=== PATIENT | female | born 1985 | race Caucasian/White ===

== ENCOUNTER 2017-05-01 18:43 | Emergency (ER) | payer BC ==
[~2017-05-01] VITALS: Ht 160 cm; Wt 102.7 kg
[~2017-05-01 18:43] MED LIST: ACET-1311 PO; AMOX875T PO; BIOTCAP2 PO; CYAN100020 PO; IBUP-1050 PO; LORA-741 PO; SERT50TA PO
[2017-05-01 18:59] VITALS: TEMP 36.7; Ht 160 cm; Wt 102.7 kg
[2017-05-01] MEDS ORDERED: KETOROLAC TROMETHAMINE 30 MG/ML VIAL IV STA (19:23)
[2017-05-01] MEDS ORDERED: SODIUM CHLORIDE 0.9% 1000ML 1,000 ML IV STA ×2 (19:23)
[2017-05-01] MEDS ORDERED: ONDANSETRON INJ 2 MG/ML 2 ML VIAL IV STA (19:23)
[2017-05-01 19:53] LABS: BASO % 0.4 %; BASO ABS # 0.05 K/uL (0-0.2); COMPLETE YES; HEMATOCRIT 38.6 % (37-47); IG% 0.4 %; LYMPH % 25.7 %; LYMPH ABS # 2.93 K/uL (1.2-3.4); MEAN CELL VOLUME 84.8 fL (80-100); MEAN CORPUSCULAR HEMOGLOBIN 27.3 pg (25-34); MEAN CORPUSCULAR HGB CONC 32.1 g/dl (32-36); MEAN PLATELET VOLUME 9.4 fL (7.4-10.4); NEUT % 68.5 %; PLATELET COUNT 270 K/uL (130-400); RED BLOOD COUNT 4.55 M/uL (4.2-5.4); WHITE BLOOD COUNT 11.38 K/uL (4.8-10.8)
[2017-05-01] MEDS ORDERED: OMEP20CA9 PO (20:00)
[2017-05-01] MEDS ORDERED: TPM25 PO (20:00)
[2017-05-01 20:07] LABS: URINE APPEARANCE CLOUDY (CLEAR); URINE BILIRUBIN NEG (NEG); URINE COLOR YELLOW; URINE EPITHELIAL CELL AUTO >30 /lpf (0-5); URINE NITRITE NEG (NEG); URINE PH 6.5 (4.5-7.5); URINE SPECIFIC GRAVITY 1.028 (1.000-1.030); UROBILINOGEN NEG (NEG)
[2017-05-01 20:08] LABS: MANUAL MICROSCOPIC REQUIRED? NO; REVIEW REQ? YES
[2017-05-01 20:23] LABS: ALB/GLOB RATIO 1.1 (0.9-2); BUN/CREATININE RATIO 9.2 (10-20); CALCIUM 8.7 mg/dl (8.5-10.1); CREATININE 0.8 mg/dl (0.60-1.20); POTASSIUM 3.7 mmol/L (3.5-5.1)
--- NOTE | 2017-05-01 20:51 | DIAGNOSTIC IMAGING REPORT ---
ABDOMINAL ULTRASOUND COMPLETE HISTORY: Left flank pain LUQ /EPIGASTRIC PAIN. COMPARISON: None. FINDINGS: Pancreas: The pancreas demonstrates a normal echotexture. Liver: Mild fatty infiltration Gallbladder: No gallbladder wall thickening. No gallstones. CBD: 3 mm Kidneys: No hydronephrosis. Spleen: Slightly prominent at 13 cm Aorta: Normal in caliber. IVC: Patent. IMPRESSION: 1. Mild fatty infiltration of liver. 2. Slight fullness of the spleen at 13 cm. Electronically signed by: Chris Davidson M.D. 05/01/2017 8:50 PM Dictated Date/Time: 05/01/2017 8:49 PM
--- NOTE | 2017-05-01 21:49 | DIAGNOSTIC IMAGING REPORT ---
ABDOMEN AND PELVIS CT WITHOUT CONTRAST CT DOSE: 1716.19 mGy.cm HISTORY: Pain LEFT FLANK PAIN TECHNIQUE: Multiaxial CT images of the abdomen and pelvis were performed without the use of intravenous and oral contrast according to the standard department stone protocol. COMPARISON STUDY: 03/30/2016 FINDINGS: Lung bases are clear. Liver spleen and pancreas are unremarkable. Gallbladder is negative for distention. Kidneys negative for hydronephrosis. There is no evidence for an obstructing urinary tract calculus. Bowel pattern within the abdomen and pelvis is nonobstructive. The appendix is normal. There is a 2 cm left ovarian cyst. Uterus is anteflexed. There is no significant free fluid within the pelvic cul-de-sac. Inguinal regions are unremarkable. IMPRESSION: 1. 2 cm left ovarian cyst. 2. Otherwise negative abdomen and pelvis Electronically signed by: Chris Davidson M.D. 05/01/2017 9:48 PM Dictated Date/Time: 05/01/2017 9:42 PM
[2017-05-01] MEDS ORDERED: ONDA4TAB10 SL (21:54)
--- NOTE | 2017-05-01 21:55 | EMERGENCY ROOM VISIT NOTE ---
History First contact with patient: 19:03 Chief Complaint: ABDOMINAL PAIN Stated Complaint: UPPER LF QUADRANT PAIN Nursing Triage Summary: Pt reports LUQ around to back that is intermittent, began last night. Nausea. Loose stool. History of Present Illness Patient is a 31-year-old white female who presents to emergency department for evaluation of left upper quadrant/epigastric pain last evening. She has a history of nonspecific abdominal pain and stomach problems. She follows with Dr. Harman with [facility]. She states that she has had problems on and off over the last 6 months. She had an EGD last fall which showed a small stomach ulcer. Patient is on Prilosec 20 mg daily. She had a colonoscopy in November of this year which was unremarkable. Patient states that she has intermittent left upper quadrant pain fairly frequently. She reports episodes of pain that can last for a few hours and sometimes once or twice a month. She notes pain in the left upper quadrant that radiates toward the epigastric region that is associated with nausea. Last evening, the pain woke her from sleep around midnight, which was unusual for her. She also reported feeling the pain radiates through to her mid back, which she is never experienced previously. She reports associated nausea and anorexia without vomiting. She did not take any additional medications for her symptoms last evening, but has used Zantac in the past. She refrains from using NSAIDs due to her ulcer history, and has cut out all caffeine and carbonated beverages. She reports drinking less than one beer in the 2-3 days prior. She denies any diarrhea edges reports that her stools have been loose. She denies melena or hematochezia. She would've rated her pain an 8/10 at its worse last evening and presently rates it a 5/10. She states the pain is up under her ribs on the left-hand side. She does note increased pain when she lays flat. She denies any chest pain or shortness of breath. No palpitations. No urinary symptoms. Last menstrual period was 2 weeks ago. Review of Systems Review of systems as per HPI. All other systems reviewed were negative. 10 systems reviewed. Past Medical/Surgical History Medical Problems: (1) Alcohol intoxication (2) Anxiety and depression (3) Chest pain (4) Migraines (5) Obesity (6) Pneumonia (7) Stomach problems (8) Stomach ulcer (9) Vaginal delivery (10) Viral gastroenteritis Surgical Problems: (1) History of colonoscopy (2) History of esophagogastroduodenoscopy (EGD) Electronic medical records are reviewed and summarized as above/below. See Problem List. Family History Diabetes mellitus FH: neurologic disorder Heart disease Social History Smoking Status: Never Smoker Alcohol Use: occasionally Marital Status: Housing Status: lives with family Occupation Status: employed Current/Historical Medications Scheduled Cyanocobalamin (Vitamin B12), 1,000 MCG PO DAILY Omeprazole (Prilosec), 20 MG PO QAM Topiramate (Topiramate), 25 MG PO HS Scheduled PRN Ondasetron Odt (Zofran Odt), 4 MG SL Q6H PRN for Nausea or Vomiting Allergies Coded Allergies: Sulfa Drugs (Verified Allergy, Mild, 12/30/10) Physical Exam Vital Signs Date Time Temp Pulse Resp B/P (MAP) Pulse Ox O2 Delivery O2 Flow Rate FiO2 05/01/17 21:29 76 18 118/72 100 Room Air 05/01/17 18:59 36.7 86 20 144/89 98 Room Air Physical Exam CONSTITUTIONAL: Patient is an overweight 31-year-old white female who is awake and alert and in no acute distress. EYES: Pupils equal, round, reactive to light and accommodation. EOMs intact without nystagmus. Sclera are anicteric. ENT: Tympanic membranes intact, with normal landmarks. External canals are clear. Oral and nasopharynx are clear. Mucous membranes are moist, no lesions , tongue and gums appear normal. NECK: No bruits auscultated. Supple without lymphadenopathy. No thyromegaly. No meningeal signs. Full active range of motion without discomfort. CARDIOVASCULAR: Regular rate and rhythm, with normal S1 and S2, no murmur or gallop or rub is heard. No carotid bruits auscultated. No JVD. Peripheral pulses easy to palpable. RESPIRATORY: Breath sounds equal and clear to auscultation without wheezes, rales, or rhonchi heard. Full and equal chest expansion without accessory muscle use or retractions. GI: Bowel sounds are present. Abdomen is soft, nondistended, tender in the epigastric and left upper quadrants, without guarding or rebound. No organomegaly. No pulsatile masses. There is no pain in the right lower quadrant over McBurney's point. There is no pain in the right upper quadrant and negative Lee sign. MUSCULOSKELETAL: Full range of motion of extremities x 4 with good strength. No cyanosis, edema, joint tenderness or swelling. No deformity. INTEGUMENTARY: No lesions or rash, normal skin turgor. NEUROLOGICAL: Alert, oriented, and cooperative. Cranial nerves, sensation and strength grossly intact. Pupils round, equal, and react to light, EOMs are full. LYMPH: No lymphadenopathy. Medical Decision & Procedures ER Provider Diagnostic Interpretation: ABDOMEN AND PELVIS CT WITHOUT CONTRAST CT DOSE: 1716.19 mGy.cm HISTORY: Pain LEFT FLANK PAIN TECHNIQUE: Multiaxial CT images of the abdomen and pelvis were performed without the use of intravenous and oral contrast according to the standard department stone protocol. COMPARISON STUDY: 03/30/2016 FINDINGS: Lung bases are clear. Liver spleen and pancreas are unremarkable. Gallbladder is negative for distention. Kidneys negative for hydronephrosis. There is no evidence for an obstructing urinary tract calculus. Bowel pattern within the abdomen and pelvis is nonobstructive. The appendix is normal. There is a 2 cm left ovarian cyst. Uterus is anteflexed. There is no significant free fluid within the pelvic cul-de-sac. Inguinal regions are unremarkable. IMPRESSION: 1. 2 cm left ovarian cyst. 2. Otherwise negative abdomen and pelvis ABDOMINAL ULTRASOUND COMPLETE HISTORY: Left flank pain LUQ /EPIGASTRIC PAIN. COMPARISON: None. FINDINGS: Pancreas: The pancreas demonstrates a normal echotexture. Liver: Mild fatty infiltration Gallbladder: No gallbladder wall thickening. No gallstones. CBD: 3 mm Kidneys: No hydronephrosis. Spleen: Slightly prominent at 13 cm Aorta: Normal in caliber. IVC: Patent. IMPRESSION: 1. Mild fatty infiltration of liver. 2. Slight fullness of the spleen at 13 cm. Laboratory Results 05/01/17 19:40 Red Blood Count 4.55, Mean Corpuscular Volume 84.8, Mean Corpuscular Hemoglobin 27.3, Mean Corpuscular Hemoglobin Concent 32.1, Mean Platelet Volume 9.4, Neutrophils (%) (Auto) 68.5, Lymphocytes (%) (Auto) 25.7, Monocytes (%) (Auto) 4.0, Eosinophils (%) (Auto) 1.0, Basophils (%) (Auto) 0.4, Neutrophils # (Auto) 7.79, Lymphocytes # (Auto) 2.93, Monocytes # (Auto) 0.46, Eosinophils # (Auto) 0.11, Basophils # (Auto) 0.05 05/01/17 19:40 Test 05/01/17 19:30 05/01/17 19:40 Urine Color YELLOW Urine Appearance CLOUDY (CLEAR) Urine pH 6.5 (4.5-7.5) Urine Specific [place] 1.028 (1.000-1.030) Urine Protein NEG (NEG) Urine Glucose (UA) NEG (NEG) Urine Ketones 1+ (NEG) Urine Occult Blood 2+ (NEG) Urine Nitrite NEG (NEG) Urine Bilirubin NEG (NEG) Urine Urobilinogen NEG (NEG) Urine Leukocyte Esterase SMALL (NEG) Urine WBC (Auto) >30 /hpf (0-5) Urine RBC (Auto) 5-10 /hpf (0-4) Urine Hyaline Casts (Auto) 0 /lpf (0-5) Urine Epithelial Cells (Auto) >30 /lpf (0-5) Urine Bacteria (Auto) 2+ (NEG) Urine Pathogenic Casts /lpf (0) Urine Test NEG (NEG) White Blood Count 11.38 K/uL (4.8-10.8) Red Blood Count 4.55 M/uL (4.2-5.4) Hemoglobin 12.4 g/dL (12.0-16.0) Hematocrit 38.6 % (37-47) Mean Corpuscular Volume 84.8 fL (80-100) Mean Corpuscular Hemoglobin 27.3 pg (25-34) Mean Corpuscular Hemoglobin Concent 32.1 g/dl (32-36) Platelet Count 270 K/uL (130-400) Mean Platelet Volume 9.4 fL (7.4-10.4) Neutrophils (%) (Auto) 68.5 % Lymphocytes (%) (Auto) 25.7 % Monocytes (%) (Auto) 4.0 % Eosinophils (%) (Auto) 1.0 % Basophils (%) (Auto) 0.4 % Neutrophils # (Auto) 7.79 K/uL (1.4-6.5) Lymphocytes # (Auto) 2.93 K/uL (1.2-3.4) Monocytes # (Auto) 0.46 K/uL (0.11-0.59) Eosinophils # (Auto) 0.11 K/uL (0-0.5) Basophils # (Auto) 0.05 K/uL (0-0.2) RDW Standard Deviation 44.1 fL (36.4-46.3) RDW Coefficient of Variation 14.4 % (11.5-14.5) Immature Granulocyte % (Auto) 0.4 % Immature Granulocyte # (Auto) 0.04 K/uL (0.00-0.02) Anion Gap 8.0 mmol/L (3-11) Est Creatinine Clear Calc Drug Dose 115.6 ml/min Estimated GFR () 113.1 Estimated GFR (Non- 97.6 BUN/Creatinine Ratio 9.2 (10-20) Calcium Level 8.7 mg/dl (8.5-10.1) Total Bilirubin 0.6 mg/dl (0.2-1) Aspartate Amino Transf (AST/SGOT) 11 U/L (15-37) Alanine Aminotransferase (ALT/SGPT) 17 U/L (12-78) Alkaline Phosphatase 86 U/L (45-117) Total Protein 7.2 gm/dl (6.4-8.2) Albumin 3.8 gm/dl (3.4-5.0) Globulin 3.4 gm/dl (2.5-4.0) Albumin/Globulin Ratio 1.1 (0.9-2) Lipase 133 U/L (73-393) Chemistry Specimen Hemolysis Medications Administered Medications (Trade) Dose Ordered Sig/Mark Route Start Time Stop Time Status Last Admin Dose Admin Sodium Chloride 1,000 ml @ 999 mls/hr Q1H1M STAT IV 05/01/17 19:23 05/01/17 20:23 DC 05/01/17 19:50 999 MLS/HR Ketorolac Tromethamine (Toradol Inj) 30 mg NOW STAT IV 05/01/17 19:23 05/01/17 19:27 DC 05/01/17 19:50 30 MG Ondansetron HCl (Zofran Inj) 4 mg NOW STAT IV 05/01/17 19:23 05/01/17 19:27 DC 05/01/17 19:50 4 MG ED Course The patient was seen and assessed as above. Her old records were reviewed. IV lock was initiated and she was hydrated with normal saline solution. She was medicated with nonnarcotic medications that she had driven. She was given Zofran 4 mg and Toradol 30 mg IV. CBC with differential, CMP, lipase, urinalysis and urine test were performed. Abdominal ultrasound was obtained. Laboratory studies noted a slight leukocytosis of 11,300, patient has a history of chronic leukocytosis which has previously been evaluated and this appears stable for her. H&H is normal. Electrolytes, renal functions and liver functions, liver functions and pancreatic enzymes are normal. Urinalysis notes 2+ blood, small amount of leuk esterase, greater than 30 WBCs and 5-10 RBCs per high-power field with 2+ bacteria, sample appears contaminated. Urine culture is ordered and is pending however. Urine test was negative. Total ultrasound noted slightly enlarged spleen, otherwise was unremarkable. There was no hydronephrosis or gallbladder pathology. Given the findings on urinalysis and the location of the patient's discomfort, CT scan of the abdomen and pelvis was obtained which did not demonstrate any renal or ureteral calculi , no hydronephrosis. There was a 2 cm left ovarian cyst noted. Remainder the CAT scan was unremarkable. All laboratory and diagnostic imaging studies were reviewed with the patient at length. She has had intermittent episodes of upper abdominal discomfort with undiagnosed GI issues for some time. She has had more constant pain over the last 24 hours. She has a benign abdominal exam and her ED workup is unrevealing at this time. Differential diagnoses entertained included esophagitis, gastritis, peptic ulcer disease, pancreatitis, cholelithiasis, biliary colic, acute cholecystitis, ascending cholangitis, UTI, pyelonephritis, renal colic, bowel section, perforation, infection, among others. Patient plans to increase her Prilosec and can use ranitidine for breakthrough symptoms. She was given a prescription for Zofran. 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 The patient was discharged home in good condition. She rated her discomfort a 0/10 at discharge. Medical Decision See ED Course. Impression Primary Impression: Left upper quadrant pain Departure Information Prescriptions Ondasetron Odt (ZOFRAN ODT) 4 Mg Tab 4 MG SL Q6H Y for Nausea or Vomiting, #20 TAB Prov: Latonya Myers PA 05/01/17 Referrals Bulmaro Cary M.D. (PCP) Patient Instructions [facility] Additional Instructions May increase Prilosec to 40mg daily. May use Zantac 150 mg twice daily. Acetaminophen(Tylenol) may be used for fever or pain. Use 1000mg every eight hours as needed. Avoid using more than 3000mg in a 24 hour period. This is available over the counter. Zofran(odansetron) tablets 4mg: Take one and allow it to dissolve in your mouth every four hours as needed for nausea or vomiting. Read all the package inserts or medication information paperwork provided. If you have any questions or concerns call your primary provider, pharmacist or the ER for assistance. Rest and drink plenty of fluids as tolerated. Slow sips of water or sports drinks are recommended instead of large amounts all at once. Continue current medications. Once your stomach is settled start with a clear liquid diet (jello, soup broth, etc.) and then advance as tolerated. You should avoid full, heavy meals for about 24 hrs from the time your symptoms resolved. Return to the ER immediately for worsening or persistent abdominal pain, vomiting, fevers, chest pains, difficulty breathing, black or bloody stools, worsening of your condition, or as needed. Follow up with your primary physician this week for a recheck of your current condition, and GI as you have scheduled.
[2017-05-01] MEDS ORDERED: ONDANSETRON HOME PACK 4MG OD TAB PO ONE (22:00)
[2017-05-01 22:54] VITALS: BP 116/64; PULSE 68; O2SAT 100
== END 2017-05-01 22:56 | disposition home or self-care (01) ==
LOC: C.EDB 18:44
DX: R10.12 Left upper quadrant pain (principal); D72.829 Elevated white blood cell count, unspecified; F41.8 Other specified anxiety disorders; Z86.19 Personal history of other infectious and parasitic diseases; Z98.890 Other specified postprocedural states; Z79.899 Other long term (current) drug therapy; Z88.2 Allergy status to sulfonamides; Z83.3 Family history of diabetes mellitus; Z82.49 Family history of ischemic heart disease and other diseases of the circulatory system; Z82.0 Family history of epilepsy and other diseases of the nervous system

== ENCOUNTER → 2017-05-19 | Outpatient (CLI) | payer BC ==
[~2017-05-19] MED LIST changes: -ACET-1311 PO; -AMOX875T PO; -BIOTCAP2 PO; -IBUP-1050 PO; -LORA-741 PO; +OMEP20CA9 PO; +ONDA4TAB10 SL; -SERT50TA PO; +SINCALIDE INJ 2 MCG in SODIUM CHLORIDE 0.9% 100ML 100 ML IV SCH; +TPM25 PO
--- NOTE | 2017-05-19 09:56 | DIAGNOSTIC IMAGING REPORT ---
Nuclear medicine hepatobiliary scan with ejection fraction analysis. CLINICAL HISTORY: Abdominal pain COMPARISON STUDY: Abdominal ultrasound dated 05/01/2017 FINDINGS: The patient was injected with 5.2 mCi of technetium 99m Choletec. Sequential anterior imaging was performed. Hepatic excretion is unremarkable in appearance. The gallbladder was first visualized on the 10 minute image. At 1 hour, the patient was administered 2 mcg of sincalide utilizing a 30 minute infusion. The gallbladder ejection fraction was normal measuring 95%. There was normal passage of activity into small bowel. IMPRESSION: Normal study. No evidence of cystic duct obstruction. Normal gallbladder ejection fraction of 95%. Electronically signed by: Isaac Alexander M.D. 05/19/2017 9:55 AM Dictated Date/Time: 05/19/2017 9:53 AM
== END | disposition home or self-care (01) ==
LOC: C.NUCL 07:18
PROVIDERS: ATTEND Internal Medicine
DX: R11.2 Nausea with vomiting, unspecified (principal); R68.81 Early satiety; R10.84 Generalized abdominal pain; K80.50 Calculus of bile duct without cholangitis or cholecystitis without obstruction

== ENCOUNTER 2025-08-06 11:48 | Observation (INO) ==
--- NOTE | 2025-08-06 12:53 | Emergency Department Note ---
History of Present Illness General Chief complaint: Abdominal Pain Stated complaint: STOMACH PAIN/WORSE LOWER R SIDE Time Seen by Provider: 08/06/25 12:51 History of Present Illness Maximum Pain Intensity: 5 This is a 40-year-old female who presents to the emergency department via private vehicle with complaints of "right lower quadrant abdominal pain". The patient notes that this past Monday evening into Monday morning she began with right lower quadrant abdominal pain. The pain is worse with movements, worse when driving and striking a bump in the road, and also when sitting down on the toilet. The patient denies any vomiting, diarrhea, fevers or blood in the stool. No history of ulcerative colitis or Crohn's but does note history of IBS. She follows with [facility] and was referred in noting 4 days of right lower quadrant abdominal pain. The patient does note history of cholecystectomy in 2022. Last EGD was in June. Current pain 04/05. Home Medications Medication Instructions Recorded Confirmed Type dexlansoprazole 60 mg 60 mg PO QAM 01/18/22 07/09/25 History capsule,biphase delayed release (Dexilant) famotidine 20 mg tablet 20 mg PO BID 01/18/22 07/09/25 History ondansetron HCl 8 mg tablet 8 mg PO Q8 PRN Nausea 01/18/22 07/09/25 History dicyclomine 10 mg capsule 10 mg PO TID PRN Cramping #14 caps 01/19/22 07/09/25 Rx diphenhydramine HCl 25 mg capsule 25 mg PO HS 07/02/25 07/09/25 History (Benadryl) escitalopram oxalate 20 mg tablet 20 mg PO HS 07/02/25 07/09/25 History gabapentin 100 mg capsule 200 mg PO HS 07/02/25 07/09/25 History rimegepant 75 mg disintegrating 75 mg PO UD PRN migraines 07/02/25 07/09/25 History tablet (Nurtec ODT) Allergies Allergy/AdvReac Type Severity Reaction Status Date / Time Influenza Virus Vaccines Allergy Intermediate cellulitis Verified 07/09/25 12:49 Sulfa (Sulfonamide Allergy Intermediate hives/n/v Verified 07/09/25 12:49 Antibiotics) prucalopride [From Motegrity] AdvReac Severe severe Verified 07/09/25 12:49 headaches topiramate [From Topamax] AdvReac Intermediate NAUSEA/VOMI Verified 07/09/25 12:49 TING Past Med/Surg History Problem List (Updated 08/06/25 @ 14:57 by Oniel Srivastava PA-C) Acute appendicitis (Acute) Appendicitis Maltracking of left patella Chondromalacia patellae of left knee Hx laparoscopic cholecystectomy (07/07/22) Laparoscopic Cholecystectomy - Rodrigo Gee, Irritable bowel syndrome Gastroparesis Biliary dyskinesia History of back problems Bronchitis Arthritis Anemia GERD with esophagitis Food impaction of esophagus Esophageal foreign body (Acute) Dysphagia Odynophagia Heartburn Nausea & vomiting (Acute) Morbid obesity with BMI of 45.0-49.9, adult Epigastric abdominal pain Encounter for pre-operative examination Gastroparesis Medical History Periodic limb movement disorder "restless limb syndrome" arms and legs History of dysphagia History of pneumonia ~2017 - no hospitalization, no issues since. Gastroparesis Hx of motion sickness Hx of gastric ulcer Sleep apnea mild - uses cpap History of COVID-19 09/2022- fever, head congestion, no hospitalization Asthma does not take anything routinely- mostly cold induced Tension headache Nausea and vomiting after administration of anesthetic agent Osteoarthritis Anxiety IBS (irritable bowel syndrome) GERD (gastroesophageal reflux disease) Temporomandibular joint disorder no recent issues. locked x1 (remote history ~) no problems since. Hx of leukocytosis Tachycardia per pt borderline, states normal HR is in the 90s Depression Surgical History S/P laparoscopic cholecystectomy History of tooth extraction History of colonoscopy History of esophagogastroduodenoscopy (EGD) w/ CRAVEN clip inserted/removed History of wisdom tooth extraction Family History Father Family history of diabetes mellitus Hypertension Uncle Family hx of colon cancer Grandfather (Paternal) Colorectal cancer Brother Family history of diabetes mellitus Hypertension Other Family history non-contributory No family history of adverse response to anesthesia Social History Smoking Status: Former smoker Tobacco Type: Cigarettes Second Hand Exposure: No; Do You Dip or Chew Tobacco: No; Hx Alcohol Use: Yes Alcohol type: beer and hard liquor Alcohol Intake Frequency: 2-3 x/Week Hx Substance Use: No Preferred Language: Guamanian Communication Ability: Effective Visual Impairment: No Limitations Buffing Wheel Operator Required: No Beliefs That Will Affect Care: None marital status: Current Living Situation: Spouse and Family Current Living Situation Comment: Lives with and 2 sons current occupational status: employed 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 How many Children do You have: 2 Feels Safe at Home: Yes Diet: regular during the past year weight has: remained stable Assistive Devices: CPAP and Glasses Review of Systems A total of 10 systems reviewed and were otherwise negative Physical Exam Vital Signs Vital Signs - 24 hr 08/06/25 12:14 08/06/25 12:31 08/06/25 12:54 Temperature 36.4 C L Temperature Source Temporal Artery Scan Pulse Rate 95 H 85 83 Pulse Rate from SpO2 Sensor 84 Respiratory Rate 18 16 Blood Pressure 135/80 Blood Pressure Mean 98 Pulse Oximetry 96 99 Oxygen Delivery Method Room Air Sepsis New/Unexplained Change in Mental Status No Sepsis Action Taken by Nursing No Action Required 08/06/25 13:00 08/06/25 13:15 Temperature Temperature Source Pulse Rate 83 Pulse Rate from SpO2 Sensor 84 Respiratory Rate 19 Blood Pressure 129/95 Blood Pressure Mean 113 Pulse Oximetry 99 Oxygen Delivery Method Sepsis New/Unexplained Change in Mental Status Sepsis Action Taken by Nursing VITAL SIGNS - Vital signs and nursing notes were reviewed. Stable and afebrile. GENERAL -40-year-old female appearing her stated age who is in no acute distress. Communicates well with provider and answers questions appropriately. SKIN - Without rashes. No meningeal or petechial rash. HEAD - NC/AT. EYES - PERRL with EOMI bilaterally. Sclera anicteric. NECK - No nuchal rigidity. LUNGS - CTA CARDIAC - RRR ABDOMEN - Abdominal contour normal without pulsations or visible masses. BS normoactive all four quadrants. There is right lower quadrant abdominal tenderness to palpation. No guarding or rigidity. No palpable masses, hepatosplenomegaly, or ascites noted. EXTREMITIES - No clubbing or peripheral cyanosis. +5/5 strength noted in UE/LE bilaterally. NEUROLOGIC - Cranial nerves II through XII grossly intact. PSYCH -alert, oriented and pleasant on exam Course Administered Medications Discontinued Medications Ioversol (Optiray 320 100ml) 94 ml IV ONCE ONE Stop: 08/06/25 13:58 Last Admin: 08/06/25 13:57 Dose: 94 ml Documented By: ASHLIE Medical Decision Making Laboratory Data 08/06/25 12:27 08/06/25 12:27 Lab Results 08/06/25 Range/Units 12:27 WBC 11.87 H (4.8-10.8) K/ul RBC 3.93 L (4.20-5.40) M/uL Hgb 10.8 L (12.0-16.0) g/dl Hct 33.2 L (37.0-47.0) % MCV 84.5 (80.0-100.0) fL MCH 27.5 (25.0-34.0) pg MCHC 32.5 (32.0-36.0) g/dL RDW Std Deviation 44.3 (36.4-46.3) fL RDW Coeff of Eulalio 14.4 (11.5-14.5) % Plt Count 285 (130-400) K/uL MPV 9.7 (9.4-12.4) fL Immature Gran % (Auto) 0.7 % Neut % (Auto) 73.3 % Lymph % (Auto) 19.0 % [place] % (Auto) 4.7 % Eos % (Auto) 1.8 % Baso % (Auto) 0.5 % Neut # (Auto) 8.70 H (1.40-6.50) K/uL Lymph # (Auto) 2.26 (1.20-3.40) K/uL [place] # (Auto) 0.56 (0.11-0.59) K/uL Eos # (Auto) 0.21 (0.00-0.50) K/uL Baso # (Auto) 0.06 (0.00-0.20) K/uL Immature Gran # (Auto) 0.08 (0.01-0.20) K/uL Sodium 139 (136-145) mmol/L Potassium 3.6 (3.5-5.1) mmol/L Chloride 107 (98-107) mmol/L Carbon Dioxide 25 (21-32) mmol/L Anion Gap 7 (3-11) BUN 8 (6-23) mg/dl Creatinine 0.56 L (0.6-1.2) mg/dl Est Cr Clr Drug Dosing 169.6 ml/min eGFR 117.51 BUN/Creatinine Ratio 14.3 (10-20) Glucose 86 (70-99(Fasting)) mg/dl Calcium 8.8 (8.6-10.3) mg/dl Total Bilirubin 0.6 (0.2-1.0) mg/dl AST 18 (13-39) U/L ALT 20 (7-52) U/L Alkaline Phosphatase 82 (34-104) U/L Total Protein 7.0 (6.0-8.3) gm/dl Albumin 3.9 (3.4-5.0) gm/dl Globulin 3.1 (2.5-4.0) gm/dl Albumin/Globulin Ratio 1.3 (0.9-2) Lipase 14 (11-82) U/L HCG, Qual Negative (Negative) Imaging Data Radiologist's Impression: Abdomen/Pelvis CT 08/06/25 13:03 CT SCAN OF THE ABDOMEN AND PELVIS WITH IV CONTRAST CLINICAL HISTORY: Right lower quadrant pain. COMPARISON STUDY: KUB the 2024. CT of the abdomen and pelvis November 28, 2023. TECHNIQUE: Following the IV administration of 94 cc of Optiray 320, CT scan of the abdomen and pelvis is performed from the lung bases to the proximal femora. Images are reviewed in the axial, sagittal, and coronal planes. IV contrast was administered without complication. A dose lowering technique was utilized adhering to the principles of ALARA. CT DOSE: 1580.51 mGy.cm FINDINGS: Visualized lung bases are unremarkable. There is no pneumatosis, free air or portal venous gas. There is no biliary ductal dilatation status post cholecystectomy. There are no hepatic lesions. Adrenal glands, kidneys and pancreas are normal. There is no hydronephrosis. There is no evidence for a bowel obstruction. The appendix is mildly dilated, measuring 1 cm in caliber. Moderate periappendiceal stranding is noted. There is no free air. There is no abscess. A tampon is in place. There is no lymphadenopathy. Major vasculature is patent. Submucosal fat deposition within the colon is again noted. This is chronic. IMPRESSION: Findings consistent with acute appendicitis. No free air or abscess. ACT 112: Negative or not required by law. Electronically signed by: Jordan Cross M.D. 08/06/2025 2:14 PM MDM Narrative Patient was seen and evaluated as above in room A11b. Review was performed of nursing notes and vital signs. I did review pertinent previous visits and patient history. After obtaining a thorough history and physical examination the above work up was performed. Patient presents to us today for evaluation of right lower quadrant abdominal pain. The patient denies any trauma or injury. Pain has been present since this past Monday evening. She reached out to her GI specialist and was referred in. She notes she still has the appendix. No gallbladder. She is tender in the right lower quadrant on examination. Vital signs are stable. Options of care were discussed with the patient. IV access was established. Labs were drawn. She was offered analgesia and respectfully declined.There is leukocytosis 11.87. Anemia with hemoglobin at 10.8. There is no evidence of kidney or liver failure. hCG is negative. Lipase normal. CT scan as above showing acute appendicitis. No free air or abscess. This does clinically correlate with her presentation. IV Mefoxin ordered in addition to IV fluids and IV Zofran as the patient did vomit in the CT scanner suite. Patient notes that she had some coffee today around 8 AM, but last food intake was 5 PM yesterday. With the CT scan showing acute appendicitis, I did discuss this with general surgery. 1425: I did speak with Dr. Pineda, general surgeon. Please refer to further documentation regarding her stay. GCS: 15 In the evaluation and treatment of this patient the following differential diagnoses were entertained: Appendicitis, UTI, pyelonephritis, diverticulitis, ovarian torsion, among others. Impression & Plan Acute appendicitis Discharge Plan Visit Data Chief Complaint: Abdominal Pain Stated Complaint: STOMACH PAIN/WORSE LOWER R SIDE ED Provider: Sammy Jalloh ED Midlevel Provider: Oniel Srivastava Discharge Problem: Acute appendicitis Patient Disposition: Being Evaluated by Surgeon Condition: Good Forms Stand Alone Forms: My [facility] Prescriptions Prescriptions: No Action ondansetron HCl 8 mg tablet 8 mg PO Q8 PRN (Reason: Nausea) famotidine 20 mg tablet 20 mg PO BID dexlansoprazole [Dexilant] 60 mg capsule,biphase delayed releas 60 mg PO QAM dicyclomine 10 mg capsule 10 mg PO TID PRN (Reason: Cramping) Qty: 14 0RF gabapentin 100 mg Capsule 200 mg PO HS escitalopram oxalate 20 mg Tablet 20 mg PO HS Nurtec ODT 75 mg tablet,disintegrating 75 mg PO UD PRN (Reason: migraines) diphenhydramine HCl [Benadryl] 25 mg Capsule 25 mg PO HS Referrals Referrals: Jayla Orozco [Primary Care Provider] -
[2025-08-06 13:21] LABS: Hematocrit (blood only) 33.2 % (37.0-47.0); Hemoglobin 10.8 g/dl (12.0-16.0); Immature Granulocytes # (auto) 0.08 K/uL (0.01-0.20); Immature Granulocytes % (auto) 0.7 %; Mean Corpuscular Hemoglobin 27.5 pg (25.0-34.0); Mean Corpuscular Volume 84.5 fL (80.0-100.0); Platelet Count 285 K/uL (130-400); RDW Standard Deviation 44.3 fL (36.4-46.3); Red Blood Count 3.93 M/uL (4.20-5.40); White Blood Count 11.87 K/ul (4.8-10.8)
[2025-08-06 13:37] LABS: Pregnancy Test, Serum Negative (Negative)
[2025-08-06 13:44] LABS: Alanine Aminotransferase 20.0 U/L (7-52); Albumin Globulin Ratio 1.3 (0.9-2); Alkaline Phosphatase 82.0 U/L (34-104); Anion Gap 7.0 (3-11); Bilirubin,Total 0.6 mg/dl (0.2-1.0); Blood Urea Nitrogen 8.0 mg/dl (6-23); Calcium 8.8 mg/dl (8.6-10.3); Carbon Dioxide 25.0 mmol/L (21-32); Chloride 107.0 mmol/L (98-107); Creatinine Clr Calc Pharmacy 169.6 ml/min; Globulin 3.1 gm/dl (2.5-4.0); Glucose 86.0 mg/dl (70-99(Fasting)); Lipase 14.0 U/L (11-82); Potassium 3.6 mmol/L (3.5-5.1); Sodium 139.0 mmol/L (136-145); Total Protein 7.0 gm/dl (6.0-8.3)
[2025-08-06] MEDS: OPTIRAY 320 100ml IV ONE (13:57)
--- NOTE | 2025-08-06 14:16 | CT Scan Report ---
CT SCAN OF THE ABDOMEN AND PELVIS WITH IV CONTRAST CLINICAL HISTORY: Right lower quadrant pain. COMPARISON STUDY: KUB the 2024. CT of the abdomen and pelvis November 28, 2023. TECHNIQUE: Following the IV administration of 94 cc of Optiray 320, CT scan of the abdomen and pelvi s is performed from the lung bases to the proximal femora. Images are reviewed in the axial, sagittal , and coronal planes. IV contrast was administered without complication. A dose lowering technique wa s utilized adhering to the principles of ALARA. CT DOSE: 1580.51 mGy.cm FINDINGS: Visualized lung bases are unremarkable. There is no pneumatosis, free air or portal venous gas. There is no biliary ductal dilatation status post cholecystectomy. There are no hepatic lesions. Adrenal glands, kidneys and pancreas are normal. There is no hydronephrosis. There is no evidence fo r a bowel obstruction. The appendix is mildly dilated, measuring 1 cm in caliber. Moderate periappend iceal stranding is noted. There is no free air. There is no abscess. A tampon is in place. There is n o lymphadenopathy. Major vasculature is patent. Submucosal fat deposition within the colon is again n oted. This is chronic. IMPRESSION: Findings consistent with acute appendicitis. No free air or abscess. ACT 112: Negative or not required by law. Electronically signed by: Jordan Cross M.D. 08/06/2025 2:14 PM
--- NOTE | 2025-08-06 14:47 | History & Physical Report ---
Date of Service August 06, 2025 Assessment & Plan (1) Appendicitis: Plan: IVF IV abx to OR for lap appendectomy Present on Admission?: Yes History of Present Illness Primary Care Provider: Jayla Orozco This is a 40YO who came to ED for abdominal pain. The pain began this weekend and then located to right lower quadrant abdominal. The pain is worse with movements. She denies any vomiting, diarrhea, fevers or blood in the stool. The CT shows early acute appendicitis. Allergies Allergy/AdvReac Type Severity Reaction Status Date / Time Influenza Virus Vaccines Allergy Intermediate cellulitis Verified 07/09/25 12:49 Sulfa (Sulfonamide Allergy Intermediate hives/n/v Verified 07/09/25 12:49 Antibiotics) prucalopride [From Motegrity] AdvReac Severe severe Verified 07/09/25 12:49 headaches topiramate [From Topamax] AdvReac Intermediate NAUSEA/VOMI Verified 07/09/25 12:49 TING Home Medications Medication Instructions Recorded Confirmed Type dexlansoprazole 60 mg 60 mg PO QAM 01/18/22 07/09/25 History capsule,biphase delayed release (Dexilant) famotidine 20 mg tablet 20 mg PO BID 01/18/22 07/09/25 History ondansetron HCl 8 mg tablet 8 mg PO Q8 PRN Nausea 01/18/22 07/09/25 History dicyclomine 10 mg capsule 10 mg PO TID PRN Cramping #14 caps 01/19/22 07/09/25 Rx diphenhydramine HCl 25 mg capsule 25 mg PO HS 07/02/25 07/09/25 History (Benadryl) escitalopram oxalate 20 mg tablet 20 mg PO HS 07/02/25 07/09/25 History gabapentin 100 mg capsule 200 mg PO HS 07/02/25 07/09/25 History rimegepant 75 mg disintegrating 75 mg PO UD PRN migraines 07/02/25 07/09/25 History tablet (Nurtec ODT) Past Med/Surg History Problem List (Updated 08/06/25 @ 14:57 by Oniel Srivastava PA-C) Acute appendicitis (Acute) Appendicitis Maltracking of left patella Chondromalacia patellae of left knee Hx laparoscopic cholecystectomy (07/07/22) Laparoscopic Cholecystectomy - Rodrigo D. Gee, DO Irritable bowel syndrome Gastroparesis Biliary dyskinesia History of back problems Bronchitis Arthritis Anemia GERD with esophagitis Food impaction of esophagus Esophageal foreign body (Acute) Dysphagia Odynophagia Heartburn Nausea & vomiting (Acute) Morbid obesity with BMI of 45.0-49.9, adult Epigastric abdominal pain Encounter for pre-operative examination Gastroparesis Medical History Periodic limb movement disorder "restless limb syndrome" arms and legs History of dysphagia History of pneumonia ~2017 - no hospitalization, no issues since. Gastroparesis Hx of motion sickness Hx of gastric ulcer Sleep apnea mild - uses cpap History of COVID-19 09/2022- fever, head congestion, no hospitalization Asthma does not take anything routinely- mostly cold induced Tension headache Nausea and vomiting after administration of anesthetic agent Osteoarthritis Anxiety IBS (irritable bowel syndrome) GERD (gastroesophageal reflux disease) Temporomandibular joint disorder no recent issues. locked x1 (remote history ~) no problems since. Hx of leukocytosis Tachycardia per pt borderline, states normal HR is in the 90s Depression Surgical History S/P laparoscopic cholecystectomy History of tooth extraction History of colonoscopy History of esophagogastroduodenoscopy (EGD) w/ CRAVEN clip inserted/removed History of wisdom tooth extraction Family History Father Family history of diabetes mellitus Hypertension Uncle Family hx of colon cancer Grandfather (Paternal) Colorectal cancer Brother Family history of diabetes mellitus Hypertension Other Family history non-contributory No family history of adverse response to anesthesia Social History Smoking Status: Former smoker Tobacco Type: Cigarettes Second Hand Exposure: No; Do You Dip or Chew Tobacco: No; Hx Alcohol Use: Yes Alcohol type: beer and hard liquor Alcohol Intake Frequency: 2-3 x/Week Hx Substance Use: No Preferred Language: Chinese Communication Ability: Effective Visual Impairment: No Limitations Motion Picture Projectionist Apprentice Required: No Beliefs That Will Affect Care: None marital status: Current Living Situation: Spouse and Family Current Living Situation Comment: Lives with and 2 sons 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 occupational 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: 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 How many Children do You have: 2 Feels Safe at Home: Yes Diet: regular during the past year weight has: remained stable Assistive Devices: CPAP and Glasses Review of Systems no fever and no chills no problem reported no problem reported no cough and no dyspnea no chest pain + abdominal pain; no nausea, no vomiting and no diarrhea/loose stools no dysuria no localized weakness and no generalized weakness no behavioral changes no easy bleeding and no easy bruising Physical Exam Constitutional: WD/WN, vitals as above + obese Eyes: no scleral abnormality Respiratory: normal respiratory effort Cardiovascular: Rate/Rhythm: regular rate and regular rhythm Gastrointestinal (Abdomen): Inspection/Auscultation: abdomen normal to inspection and + abdominal surgical scar; abdomen not distended Percussion/Palpation: + abdomen tender and abdomen soft; no guarding and abdomen not rigid Musculoskeletal: Head/Neck/Chest: normocephalic and head atraumatic Skin: no rashes, warm and dry Results & Data Vital Signs (Past 12 Hours) Vital Signs Temp Pulse Resp BP Pulse Ox O2 Del Method 08/06/25 13:15 83 19 99 08/06/25 13:00 129/95 08/06/25 12:54 83 16 99 08/06/25 12:31 85 08/06/25 12:14 36.4 C L 95 H 18 135/80 96 Room Air Diagnostic Findings CT SCAN OF THE ABDOMEN AND PELVIS WITH IV CONTRAST CLINICAL HISTORY: Right lower quadrant pain. COMPARISON STUDY: KUB the 2024. CT of the abdomen and pelvis November 28, 2023. TECHNIQUE: Following the IV administration of 94 cc of Optiray 320, CT scan of the abdomen and pelvis is performed from the lung bases to the proximal femora. Images are reviewed in the axial, sagittal, and coronal planes. IV contrast was administered without complication. A dose lowering technique was utilized adhering to the principles of ALARA. CT DOSE: 1580.51 mGy.cm FINDINGS: Visualized lung bases are unremarkable. There is no pneumatosis, free air or portal venous gas. There is no biliary ductal dilatation status post cholecystectomy. There are no hepatic lesions. Adrenal glands, kidneys and pancreas are normal. There is no hydronephrosis. There is no evidence for a bowel obstruction. The appendix is mildly dilated, measuring 1 cm in caliber. Moderate periappendiceal stranding is noted. There is no free air. There is no abscess. A tampon is in place. There is no lymphadenopathy. Major vasculature is patent. Submucosal fat deposition within the colon is again noted. This is chronic. IMPRESSION: Findings consistent with acute appendicitis. No free air or abscess.
[2025-08-06] MEDS ORDERED: MIDAZOLAM HCL 1 MG/ML 2ML VIAL ONE (14:54)
[2025-08-06] MEDS ORDERED: FLUMAZENIL 0.1 MG/1 ML 10 ML VIAL IV PRN (14:54)
[2025-08-06] MEDS ORDERED: ATROPINE SULFATE 0.1 MG/ML 10ML SYR IV PRN (14:54)
[2025-08-06] MEDS ORDERED: PROPOFOL IV EMULSION 10 MG/ML 20 ML VIAL IV ONE (14:54)
[2025-08-06] MEDS ORDERED: ROCURONIUM BROMIDE 10 MG/ML 5 ML VIAL IV ONE (14:54)
[2025-08-06] MEDS ORDERED: HYDROmorphone INJ 1 MG/ML SYRINGE IV PRN (14:54)
[2025-08-06] MEDS ORDERED: ONDANSETRON INJ 2 MG/ML 2 ML VIAL ONE (14:54)
[2025-08-06] MEDS ORDERED: GLYCOPYRROLATE 0.2 MG/ML VIAL ONE (14:54)
[2025-08-06] MEDS ORDERED: LIDOCAINE 2% 2 ML VIAL/AMP(20MG/ML) INFIL ONE (14:54)
[2025-08-06] MEDS ORDERED: PROMETHAZINE HCL 6.25 MG in SODIUM CHLORIDE 0.9% 50 ML IV PRN (14:54)
[2025-08-06] MEDS ORDERED: NALOXONE HCL 0.4 MG/1 ML VIAL/CARP IV PRN (14:54)
[2025-08-06] MEDS ORDERED: DEXAMETHASONE SOD INJ 4 MG/ML VIAL ONE (14:54)
--- NOTE | 2025-08-06 14:54 | Anesthesiology Consultation ---
Date of Service August 06, 2025 Assessment & Plan Chart Review Chart Review: Acceptable Risk for Surgery and Patient NOT seen in Pre Admission Testing Consults Requested none ASA [id number] Proposed Anesthesia Anesthesia Type: General History Surgery Operation Date: 08/06/25 13:20 Proposed Procedures p Laparoscopic Appendectomy - Kyrie Pineda MD Height/Weight Height: 5 ft 3 in Weight: 124.5 kg Allergies Allergy/AdvReac Type Severity Reaction Status Date / Time Influenza Virus Vaccines Allergy Intermediate cellulitis Verified 07/09/25 12:49 Sulfa (Sulfonamide Allergy Intermediate hives/n/v Verified 07/09/25 12:49 Antibiotics) prucalopride [From Motegrity] AdvReac Severe severe Verified 07/09/25 12:49 headaches topiramate [From Topamax] AdvReac Intermediate NAUSEA/VOMI Verified 07/09/25 12:49 TING Medications Home Medications Medication Instructions Recorded Confirmed Last Taken dexlansoprazole 60 mg 60 mg PO QAM 01/18/22 07/09/25 07/08/25 capsule,biphase delayed release (Dexilant) famotidine 20 mg tablet 20 mg PO BID 01/18/22 07/09/25 07/08/25 ondansetron HCl 8 mg tablet 8 mg PO Q8 PRN Nausea 01/18/22 07/09/25 11/28/23 03:30 dicyclomine 10 mg capsule 10 mg PO TID PRN Cramping #14 caps 01/19/22 07/09/25 Unknown diphenhydramine HCl 25 mg capsule 25 mg PO HS 07/02/25 07/09/25 07/08/25 (Benadryl) escitalopram oxalate 20 mg tablet 20 mg PO HS 07/02/25 07/09/25 07/08/25 gabapentin 100 mg capsule 200 mg PO HS 07/02/25 07/09/25 07/08/25 rimegepant 75 mg disintegrating 75 mg PO UD PRN migraines 07/02/25 07/09/25 Unknown tablet (Nurtec ODT) Past Medical History Medical History Periodic limb movement disorder "restless limb syndrome" arms and legs History of dysphagia History of pneumonia ~2017 - no hospitalization, no issues since. Gastroparesis Hx of motion sickness Hx of gastric ulcer Sleep apnea mild - uses cpap History of COVID-19 09/2022- fever, head congestion, no hospitalization Asthma does not take anything routinely- mostly cold induced Tension headache Nausea and vomiting after administration of anesthetic agent Osteoarthritis Anxiety IBS (irritable bowel syndrome) GERD (gastroesophageal reflux disease) Temporomandibular joint disorder no recent issues. locked x1 (remote history ~) no problems since. Hx of leukocytosis Tachycardia per pt borderline, states normal HR is in the 90s Depression morbid obesity Exercise / Class Metabolic Activity II 4-5 Yardwork/Stairs/Walk up hill Past Family History Family History Father Family history of diabetes mellitus Hypertension Uncle Family hx of colon cancer Grandfather (Paternal) Colorectal cancer Brother Family history of diabetes mellitus Hypertension Other Family history non-contributory No family history of adverse response to anesthesia Past Surgical History Surgical History S/P laparoscopic cholecystectomy History of tooth extraction History of colonoscopy History of esophagogastroduodenoscopy (EGD) w/ CRAVEN clip inserted/removed History of wisdom tooth extraction Past Anesthesia History No Hx of Anesthesia Complications and No Family Hx of Anesthesia Complications History of PONV No Hx of PONV and No Hx of Motion Sickness Social History Smoking Status: Former smoker tobacco type: cigarettes Do You Dip or Chew Tobacco: No Hx Alcohol Use: Yes Alcohol type: beer and hard liquor alcohol intake frequency: a few times a week Hx Substance Use: No substance use type: does not use Physical Exam Vital Signs Last Vital Signs Temp 36.4 C L 08/06/25 12:14 Pulse 83 08/06/25 13:15 Resp 19 08/06/25 13:15 BP 129/95 08/06/25 13:00 Pulse Ox 99 08/06/25 13:15 O2 Del Method Room Air 08/06/25 12:14 Testing Laboratory Results 08/06/25 12:27 08/06/25 12:27
[2025-08-06] MEDS ORDERED: SUGAMMADEX SODIUM 200 MG/2 ML VIAL IV ONE (14:55)
[2025-08-06] MEDS: cefOXitin 2,000 MG/60 ML BAG IV STA (15:33)
[2025-08-06] MEDS: LACTATED RINGER'S 1,000 ML IV SCH (15:34)
[2025-08-06] MEDS: BUPIVACAINE/EPINEPHRINE 0.5% MPF 1:200,000 30 ML VIAL ONE (16:10)
--- NOTE | 2025-08-06 16:44 | Operative Report ---
Post Operative Report Pre & Post Diagnosis Operation Date: 08/06/25 13:20 Pre-Op Diagnosis: Acute appendicitis Post-Op Diagnosis: same withright lower segment phlegmom I identified the patient and participated in the time-out.: Yes Procedure Operation Date: 08/06/25 13:20 Actual Procedures p Laparoscopic Appendectomy(Not Applicable) - Kyrie Pineda MD Surgeon Kyrie Pineda MD [place] Draw[employer] none Estimated Blood Loss 18 Findings Consistent with Post-Op Diagnosis Specimens appendix Drains none Anesthesia Type General Complications appendix friable and came out in two pieces Disposition Accompanied Patient To Recovery: No Disposition: Recovery Room Indications This is a 40-year-old morbidly obese female comes in with for 4 days of abdominal pain. She underwent a CT scan which shows an acute appendicitis with inflammation in her right lower quadrant. We talked her in detail about this and recommended a laparoscopic appendectomy. She understands all the risks in detail. Description of Procedure The patient was taken to the OR and underwent excellent general anesthesia. Their abdomen was prepped and draped in normal sterile fashion. A transverse supraumbilical incision was made, towel clamps were used to create tension on the abdominal wall as an 11 port was placed in the supraumbilical position, inserted with visualization gently into the peritoneal cavity. Good pneumoperitoneum was achieved to about 15 mmHg pressure. Once this was done, a visualized 12 mm left lower quadrant port , a 5mm suprapubic port , and a 5mm right upper quadrant port were all placed in normal fashion. Patient was then placed in head down and rolled to the left. A good diagnostic lap was performed. They had obvious acute appendicitis. The cecum was grasped with an atraumatic grasper. A grasper was then was then used to grasp the tip of the appendix. The lower quadrant had a phlegmon which was dissected with a blunt hydrodissector. The mesoappendix taken down with a harmonic scalpel. The base of the appendix was identified and an Endo ANOOP stapler was used to transect the appendix at its base. The appendix broke apart manipulating it to access its base. A endobag was then inserted through the left lower quadrant port and the appendix was placed into the bag. The bag was removed through the left lower quadrant port. The appendix was sent for pathologic evaluation. The pneumoperitoneum was re-established after the 12 mm port was replaced. Saline was then used to irrigate the abdomen. There was no active bleeding nor any other abnormalities noted in the abdomen. The patient was then placed back in neutral position, the ports were removed and the pneumoperitoneum decompressed. The 12mm port fascia was then closed using a 0 Vicryl. The skin was then anesthetized with 0.5% Marcaine with epinephrine local. Interrupted Vicryl is used to close the skin. Dermabond was used to reinforce the incisions. Sterile dressings were applied. The patient tolerated procedure without complications was sent to the postop recovery period of observation. They will be sent to the floor for the rest of their care. I attest to the content of the Intraoperative Record and any orders documented therein. Any exceptions are noted below.
[2025-08-06] MEDS: ONDANSETRON INJ 2 MG/ML 2 ML VIAL IV PRN (16:55)
--- NOTE | 2025-08-06 17:33 | Anesthesiology Progress Note ---
Date of Service August 06, 2025 Anesthesia Post Procedure Vital Signs Vital Signs: Temp Pulse Pulse Resp BP BP Pulse Ox 08/06/25 17:20 82 14 120/74 91 08/06/25 17:10 80 14 139/81 98 08/06/25 17:00 83 16 132/81 98 08/06/25 16:50 96 H 14 138/88 98 08/06/25 16:44 36.5 C 88 18 104/64 95 08/06/25 15:15 37.0 C 105 H 20 176/87 H 100 08/06/25 14:33 96 H 20 169/136 H 100 08/06/25 13:48 82 19 99 08/06/25 13:15 83 19 99 08/06/25 13:00 129/95 08/06/25 12:54 83 16 99 08/06/25 12:31 85 08/06/25 12:14 36.4 C L 95 H 18 135/80 96 O2 Del Method O2 Flow Rate 08/06/25 17:20 Room Air 08/06/25 17:10 Oxymask 5 08/06/25 17:00 Oxymask 5 08/06/25 16:50 Oxymask 5 08/06/25 16:44 Oxymask 9 08/06/25 15:15 Room Air 08/06/25 14:33 08/06/25 13:48 08/06/25 13:15 08/06/25 13:00 08/06/25 12:54 08/06/25 12:31 08/06/25 12:14 Room Air Pain Intensity Right Abdomen: Pain Intensity: 5 Abdomen: Pain Intensity: 5 Transfer of Care Handoff Completed per policy Notes Mental Status: alert / awake / arousable Patient Amnestic to Procedure: Yes Nausea / Vomiting: adequately controlled Pain: adequately controlled Airway Patency, RR, SpO2: stable & adequate BP & HR: stable & adequate Hydration State: stable & adequate Anesthetic Complications: no major complications apparent
[2025-08-06] MEDS: ONDANSETRON INJ 2 MG/ML 2 ML VIAL IV STA (19:55)
[2025-08-06] MEDS: SODIUM CHLORIDE 0.9% 1,000 ML IV ONE (19:55)
[2025-08-06] MEDS ORDERED: MoRPHine SULFATE 4 MG/ML 1 ML CARP\\VIAL IV PRN (19:57)
[2025-08-06] MEDS ORDERED: MoRPHine SULFATE 2 MG/ML CARP IV PRN (19:57)
[2025-08-06] MEDS ORDERED: ONDANSETRON INJ 2 MG/ML 2 ML VIAL IV PRN (19:57)
[2025-08-06] MEDS ORDERED: DICYCLOMINE HCL 10 MG CAP PO PRN (21:16)
[2025-08-06] MEDS: ACETAMINOPHEN 325 MG TAB PO PRN (21:33)
[2025-08-06] MEDS: cefOXitin 2,000 MG in DEXTROSE 5 % MINI-B 50 ML IV SCH (22:27)
[2025-08-06] MEDS: ESCITALOPRAM OXALATE 20 MG TAB PO SCH (22:32)
[2025-08-06] MEDS: GABAPENTIN 100 MG CAP PO SCH (22:32)
[2025-08-07 01:51] LABS: Appearance Urine Clear (Clear); Bacteria Urine Automated None Seen (None Seen); Cast Urine Automated 0-2 /lpf (0-2); Epithelial Cell Urine Auto 0-2 /hpf (0-2); Glucose Urine UA Negative (Negative); WBC Urine Automated 0-5 /hpf (0-5)
[2025-08-07 07:54] VITALS: BP 94/56; PULSE 82; TEMP 98.2; O2SAT 97
[2025-08-07] MEDS: FAMOTIDINE 20 MG TAB PO SCH (08:01)
--- NOTE | 2025-08-07 09:34 | Discharge Summary ---
Date of Service August 07, 2025 Admission HPI Per Admitting Provider This is a 40YO who came to ED for abdominal pain. The pain began this weekend and then located to right lower quadrant abdominal. The pain is worse with movements. She denies any vomiting, diarrhea, fevers or blood in the stool. The CT shows early acute appendicitis. Admission Exam Per Admitting Provider Constitutional: WD/WN, vitals as above + obese Eyes: no scleral abnormality Respiratory: normal respiratory effort Cardiovascular: Rate/Rhythm: regular rate and regular rhythm Gastrointestinal (Abdomen): Inspection/Auscultation: abdomen normal to inspection and + abdominal surgical scar; abdomen not distended Percussion/Palpation: + abdomen tender and abdomen soft; no guarding and abdomen not rigid Musculoskeletal: Head/Neck/Chest: normocephalic and head atraumatic Skin: no rashes, warm and dry Principal Diagnosis Acute appendicitis Discharge Exam Constitutional WD/WN, vitals as above Respiratory normal respiratory effort Cardiovascular Rate/Rhythm: regular rate and regular rhythm Gastrointestinal (Abdomen) Inspection/Auscultation: abdomen normal to inspection and + abdominal surgical incision; abdomen not distended Percussion/Palpation: + abdomen tender and abdomen soft Musculoskeletal Head/Neck/Chest: normocephalic and head atraumatic Skin no rashes, warm and dry Discharge Data Allergies Allergy/AdvReac Type Severity Reaction Status Date / Time Influenza Virus Vaccines Allergy Intermediate cellulitis Verified 08/06/25 15:13 Sulfa (Sulfonamide Allergy Intermediate hives/n/v Verified 08/06/25 15:13 Antibiotics) prucalopride [From Motegrity] AdvReac Severe severe Verified 08/06/25 15:13 headaches topiramate [From Topamax] AdvReac Intermediate NAUSEA/VOMI Verified 08/06/25 15:13 TING Consultations 08/06/25 14:45 Consult General Surgery Stat Procedures Performed Operation Date: 08/06/25 13:20 Actual Procedures p Laparoscopic Appendectomy(Not Applicable) - Kyrie Pineda MD Ordered Studies 08/06/25 13:03 CT abd pelvis IV con only Stat Hospital Course (1) Acute appendicitis: This is a 40-year-old female admitted to the ED after workup for abdominal pain showed an acute appendicitis. She was given IV fluids and IV antibiotics. She was taken to the OR for laparoscopic appendectomy. She had a right lower quadrant phlegmon but the appendix was removed without incident. She was watched on the floor overnight on IV antibiotics. She tolerated diet and was ambulating. She be discharged home on postoperative day #1. Total Time Total Time Spent Total Time Spent (In Minutes): 15 Total Time Includes: Examination of the Patient, Discharge Planning and Medication Reconciliation Discharge Plan Discharge Items Patient Disposition: Home - Self-Care Reason For Visit: APPENDICITIS Discharge Diagnosis: Acute appendicitis Condition on Discharge: Good Activity: Per Instructions section Lifting: No more than 25 pounds Bathing: No limitations Bathing Comment: shower today Sexual Activity: When tolerated Exercise/Sports: Wait until after follow-up appointment Driving/Machine Use: Resume 3 days after discharge Weightbearing: Full weightbearing Non-emergency contact: Surgeon Call non-emergency contact if: your pain is concerning for you, your temperature is above 101.5 and your wound pain has increased Follow-up/Referrals: Jayla Orozco [Primary Care Provider] - Diet: Regular Addtl Attending Provider Instructions: Post-Surgical ~Discharge Instructions Activity Recommendations: - Lifting limitation: (<20 pounds for 3-4 weeks), - Exercise/sex/sports limit: (nonstrenuous for 2 weeks), - Driving or machine use limit: (none after 3 days post-op as long as pain free and no longer taking narcotic pain medication), - Shower/bathe limit: (may shower tomorrow, no submerging incisions underwater for 2 weeks, Dermabond will peel off in 1-2 weeks) - Call the surgeon's office with any questions or concerns - ; ex. temperature higher than 101.5 degrees F, excessive bleeding or pain Diet: - Resume previous diet, regular as tolerated. Medications: - Resume previous medications unless instructed otherwise by your surgeon. - May alternate extra strength Tylenol and Ibuprofen as needed for mild to moderate pain - Tylenol 650 mg every 6 hours as needed - Ibuprofen 600 mg every 6 hours as needed, take with food - Percocet 1 every 6 hours, as needed for moderate to severe pain. Narcotics may cause nausea on an empty stomach, please eat before taking pain pills - Recommend daily stool softener (Colace) while taking narcotic pain medication to prevent constipation or straining. Drink plenty of water daily. Follow-up: - If not already scheduled, please call the office to schedule a two week follow-up appointment. Office number Pending Studies at Discharge: No Stand-Alone Forms: [facility], Smoking Cessation Medications and DC Order Prescriptions: New oxycodone-acetaminophen [Percocet] 5-325 mg tablet 1 tab PO Q6H PRN (Reason: pain) Qty: 14 0RF Continued ondansetron HCl 8 mg tablet 8 mg PO Q8 PRN (Reason: Nausea) famotidine 20 mg tablet 20 mg PO BID dexlansoprazole [Dexilant] 60 mg capsule,biphase delayed releas 60 mg PO QAM dicyclomine 10 mg capsule 10 mg PO TID PRN (Reason: Cramping) Qty: 14 0RF gabapentin 100 mg Capsule 200 mg PO HS escitalopram oxalate 20 mg Tablet 20 mg PO HS Nurtec ODT 75 mg tablet,disintegrating 75 mg PO UD PRN (Reason: migraines) diphenhydramine HCl [Benadryl] 25 mg Capsule 25 mg PO HS Discharge Orders: Discharge Order (Routine); Ordered 08/07/25 Ordered By: Kyrie Pineda Admission Data Admit Date/Time: 08/06/25 16:47 Attending Provider: Kyrie Pineda Admit Provider: Kyrie Pineda Primary Care Provider: Jayla Orozco Other Providers: Kyrie Pineda
[2025-08-07 12:07] VITALS: RESP 16
== END 2025-08-07 15:05 | disposition home or self-care (01) ==
LOC: ED 11:48 → PACUINP 15:07 → OR 15:07 → 3N 15:08